=== PATIENT | female | born 1950 | race Caucasian/White ===

== ENCOUNTER 2020-11-26 13:13 | Emergency (ER) | payer MEDICARE ==
[~2020-11-26] VITALS: Ht 162.6 cm; Wt 54.4 kg
--- NOTE | 2020-11-26 13:30 | NUR ---
[id number] home c/o RLQ abdominal pain, nausea worst since last night. Patient a/ox4, breathing even and unlabored, no sob noted. Needs attended. Kept comfortable.
--- NOTE | 2020-11-26 14:16 | NUR ---
PT STS SHE'S UNABLE TO PEE AT THIS TIME.
[2020-11-26 14:24] LABS: BASOPHILS # (AUTO) 0.1 K/uL (0.0-0.2); BASOPHILS % (AUTO) 0.9 % (0.0-2.0); EOSINOPHILS % (AUTO) 1.2 % (0.0-6.0); HEMATOCRIT 32 % (33-45); HEMOGLOBIN 10.4 g/dL (11.5-14.8); LYMPHOCYTES # (AUTO) 1.2 K/uL (0.8-4.8); LYMPHOCYTES % (AUTO) 11.4 % (20.0-44.0); MEAN CORPUSCULAR HGB CONC 32 g/dl (31.0-36.0); MEAN CORPUSCULAR VOLUME 84 fL (82-100); MONOCYTES # (AUTO) 0.8 K/uL (0.1-1.30); NEUTROPHILS # (AUTO) 8.1 K/uL (1.8-8.9); NEUTROPHILS % (AUTO) 78.5 % (43.0-81.0); PLATELET COUNT (AUTO) 565 K/uL (150-450); RED BLOOD CELL COUNT(AUTO) 3.83 MIL/uL (4.0-5.2); WHITE BLOOD COUNT (AUTO) 10.3 K/uL (4.3-11.0)
[2020-11-26 14:43] LABS: CALCIUM, SERUM 7.7 mg/dL (8.5-10.1); CARBON DIOXIDE 25 mmol/L (21-32); CHLORIDE 101 mmol/L (98-107); CREATININE 0.5 mg/dL (0.6-1.3); GLUCOSE 139 mg/dL (74-106); POTASSIUM 4.3 mmol/L (3.5-5.1); SODIUM SERUM 135 mmol/L (136-145); UREA NITROGEN, BLOOD 10 mg/dL (7-18)
[2020-11-26 14:49] LABS: ALANINE AMINOTRANSFERASE 69 U/L (12-78); ALBUMIN 2.5 g/dL (3.4-5.0); ALKALINE PHOSPHATASE 524 U/L (46-116); ASPARTATE AMINOTRANSFERASE 117 U/L (15-37); BILIRUBIN,DIRECT 0.4 mg/dL (0.0-0.2); BILIRUBIN,TOTAL 0.9 mg/dL (0.2-1.0); LIPASE 68 U/L (73-393); TOTAL PROTEIN, SERUM 5.9 g/dL (6.4-8.2)
[2020-11-26] MEDS ORDERED: HYDROMORPHONE 1 MG/1 ML DISP.SYRIN ONE (17:27)
[2020-11-26] MEDS ORDERED: HYDROMORPHONE 1 MG/1 ML DISP.SYRIN IV ONE (17:30)
[2020-11-26 18:49] VITALS: BP 132/60
--- NOTE | 2020-11-26 18:49 | NUR ---
Patient discharged to home in stable condition. Written and verbal after care instructions given. Patient verbalizes understanding of instruction.
== END 2020-11-26 18:49 | disposition home or self-care (01) ==
LOC: ER 13:15
DX: R10.11 Right upper quadrant pain (principal); G89.29 Other chronic pain; D64.9 Anemia, unspecified; Z88.0 Allergy status to penicillin
CPT/HCPCS: 36415; 76705; 80048; 80076; 83690; 85025; 96374; 99284; J1170